=== PATIENT | female | born 1970 | race Caucasian/White ===

== ENCOUNTER 2016-10-03 02:51 | Emergency (ER) | payer MEDICAID, OTHER ==
[2016-10-03 04:38] LABS: Basophils % (Auto) 0.9 % (0.0-1.8); Eosinophils % (Auto) 1.2 % (0.0-4.3); Hematocrit 41.9 % (30.3-42.9); Hemoglobin 13.7 gm/dl (10.1-14.3); Mean Corpuscular HGB Conc 33 % (30-34); Mean Corpuscular Hemoglobin 29 pg (28-32); Mean Corpuscular Volume 89 fl (79-97); Platelet Count 246 K/mm3 (140-440); Red Blood Count 4.68 M/mm3 (3.65-5.03); Red Cell Distribution Width 13.7 % (13.2-15.2); White Blood Count 8.5 K/mm3 (4.5-11.0)
[2016-10-03 04:55] LABS: Anion Gap 14 mmol/L; Blood Urea Nitrogen 5 mg/dL (7-17); Calcium 9.1 mg/dL (8.4-10.2); Carbon Dioxide 24 mmol/L (22-30); Chloride 99.7 mmol/L (98-107); Glucose 92 mg/dL (65-100); Potassium 4.1 mmol/L (3.6-5.0); Sodium 134 mmol/L (137-145)
--- NOTE | 2016-10-03 07:30 | XRay Report ---
ROUTINE CHEST, TWO VIEWS: HISTORY: Short of breath. The left hemidiaphragm is elevated by one rib level compared to the right side. The lungs are clear. No parenchymal lung disease. Normal heart and mediastinal structures. Normal bony thorax. IMPRESSION: Mild elevation of the left hemidiaphragm, otherwise, unremarkable chest films.
[2016-10-03] MEDS ORDERED: ROBITUSSIN AC PO ONE (08:16)
--- NOTE | 2016-10-03 08:18 | Emergency Department Report ---
HPI - General Chief Complaint: Dyspnea/Respdistress Time Seen by Provider: 10/03/16 08:06 - HPI HPI: This is a 46-year-old female presents to the emergency department with the complaints of body aches, left-sided chest discomfort with radiation towards the left shoulder and back and a nonproductive cough that has been going on for the past 2-3 months. She has some occasional shortness of breath with this as well but she does have a history of asthma. She says she has been taking her inhaler without much relief. She denies any history of [place], CVA, PE/ DVT. She is not currently have a primary care doctor if she is just dealing with getting her Medicare insurance. She denies any fever, dysuria, diaphoresis. No recent travel or sick contacts at home. She denies tobacco abuse or any illicit drug use. ED Past Medical Hx - Medications Home Medications: Home Medications Medication Instructions Recorded Confirmed Last Taken Type ALBUTEROL Inhaler [ProAir HFA 2 puff IH QID PRN #1 inhalation 10/03/16 Unknown Rx Inhaler] guaiFENesin/CODEINE [Robitussin AC] 5 ml PO Q6H PRN #100 oral.liqd 10/03/16 Unknown Rx ED Review of Systems ROS: Stated complaint: BODY PAIN Other details as noted in HPI Comment: All other systems reviewed and negative Constitutional: denies: chills, fever Eyes: denies: eye pain, eye discharge, vision change ENT: denies: ear pain, throat pain Respiratory: cough, shortness of breath Cardiovascular: chest pain. denies: palpitations Gastrointestinal: denies: abdominal pain, nausea, diarrhea Genitourinary: denies: urgency, dysuria, discharge Musculoskeletal: back pain, myalgia Skin: denies: rash, lesions Neurological: denies: headache, weakness, paresthesias Physical Exam - Physical Exam Vital Signs: Vital Signs 10/03/16 03:10 Temperature 97.8 F Pulse Rate 85 Respiratory 22 Rate Blood Pressure 113/75 O2 Sat by Pulse 100 Oximetry Physical Exam: GENERAL: The patient is well-developed well-nourished. HEENT: Normocephalic. Atraumatic. Extraocular motions are intact. Patient has moist mucous membranes. Pupils equal reactive to light bilaterally. NECK: Supple. Trachea is midline. CHEST/LUNGS: Mild wheezing throughout the chest. A dry cough is heard during examination. There is some reproducible chest pain to palpation. There is no respiratory distress noted. HEART/CARDIOVASCULAR: Regular. There is no tachycardia. There is no gallop rub or murmur. ABDOMEN: Abdomen is soft, nontender. Patient has normal bowel sounds. There is no abdominal distention. SKIN: There is no rash. There is no edema. There is no diaphoresis. NEURO: The patient is awake, alert, and oriented. The patient is cooperative. The patient has no focal neurologic deficits. The patient has normal speech. MUSCULOSKELETAL: There is no tenderness or deformity. There is no limitation range of motion. There is no evidence of acute injury. ED Course Vital Signs 10/03/16 03:10 Temperature 97.8 F Pulse Rate 85 Respiratory 22 Rate Blood Pressure 113/75 O2 Sat by Pulse 100 Oximetry ED Medical Decision Making - Lab Data Result diagrams: 10/03/16 04:12 10/03/16 04:12 - EKG Data -: EKG Interpreted by Me EKG shows normal: sinus rhythm (with PVCS), axis, intervals, QRS complexes, ST- T waves Rate: normal - EKG Data When compared to previous EKG there are: previous EKG unavailable Interpretation: normal EKG - Radiology Data Radiology results: report reviewed, image reviewed interpreted by me: Chest x-ray did not show any acute process. Heart is normal shape and size. No effusions. No pneumothorax. No signs of pneumonia seen. CT angiography of the chest does not show any signs of pulmonary embolism, dissection, aneurysm or any acute process. - Medical Decision Making This is a 46-year-old female with a history of asthma who presents to the emergency department with a 1-2 month history of some body aches, chest discomfort, dry cough. Patient was evaluated today with physical exam, labs, imaging and EKG. EKG does not show any signs of ST elevation [place] or dysrhythmia. Chest x-ray does not show any acute process. Patient's labs been unremarkable including negative troponins 3 and no signs of infection or electrolyte abnormalities. She was given a dose of Robitussin-AC for her cough and a shot of Toradol for her discomfort. The chest pain is reproducible. There is mild wheezing in the lungs but the heart is normal auscultation. Patient had a d-dimer that was slightly above the normal range at 250, so a CT angiography of the chest was done. This resulted as normal without pulmonary embolism or dissection or any acute process. Patient was reevaluated says she is feeling much better. She has a BRYON score of 1. She was given referrals for primary care and cardiology. She was given a dose of Decadron here for her slight bronchospasm and a refill of her albuterol inhaler and some Robitussin- AC for home. She understands the sedating nature of the cough medication. She will return to the ER with any worsening of her symptoms or any acute distress. - Differential Diagnosis costochondritis, bronchitis, [place], PE, pneumonia Critical Care Time: No Critical care attestation.: If time is entered above; I have spent that time in minutes in the direct care of this critically ill patient, excluding procedure time. ED Disposition Clinical Impression: Body aches, Bronchitis, Costochondritis Chest pain Qualifiers: Chest pain type: unspecified Qualified Code(s): R07.9 - Chest pain, unspecified Disposition: DISCHARGED TO HOME OR SELFCARE Is pt being admited?: No Does the pt Need Aspirin: No Condition: Stable Instructions: Chest Pain (ED), Costochondritis (ED), Acute Bronchitis (ED) Additional Instructions: Please follow-up with a primary care doctor in the next few days. I will also given you a referral for a local back up worker, Dr. Briones, to follow up regarding your chest pain. Return to the emergency department with any worsening of your symptoms or any acute distress. Prescriptions: ALBUTEROL Inhaler [ProAir HFA Inhaler] 2 puff IH QID PRN #1 inhalation PRN Reason: Shortness Of Breath guaiFENesin/CODEINE [Robitussin AC] 5 ml PO Q6H PRN #100 oral.liqd PRN Reason: Cough Referrals: PRIMARY MD SABI [Primary Care Provider] - 3-5 Days ZULMA BRIONES MD [Staff Physician] - 3-5 Days SHERIF GAVIRIA MD [Staff Physician] - 3-5 Days [facility] [Outside] - 3-5 Days Time of Disposition: 11:11
[2016-10-03] MEDS: TORADOL IM ONE (09:15)
[2016-10-03] MEDS ORDERED: NACL ONE (09:57)
--- NOTE | 2016-10-03 10:47 | Cat Scan Report ---
CTA CHEST: History: Chest pain. Technique: Helical CT following IV contrast. Pulmonary embolus protocol. Sagittal and coronal reformatted images. Rotational MIP images. Findings: Contrast bolus is satisfactory. No pulmonary embolus is identified. The thyroid gland, tracheobronchial tree, esophagus, heart, pericardium, mediastinal vessels, lung mortensen and bony thorax are unremarkable. Impression: No evidence for pulmonary embolus. Unremarkable CT chest with contrast.
[2016-10-03] MEDS ORDERED: DECADRON PO ONE (11:08)
[2016-10-03 11:43] VITALS: BP 110/68
== END 2016-10-03 11:20 | disposition home or self-care (01) ==
LOC: ED 02:51
DX: J40 Bronchitis, not specified as acute or chronic (principal); M94.0 Chondrocostal junction syndrome [Tietze]; M79.1 Myalgia
CPT/HCPCS: 36415; 71020; 71275; 80048; 84484; 85025; 85379; 93005; 93010; 96372; 99284; J1885; Q9967; J8540